=== PATIENT | female | born 1970 | race Two or more races ===

== ENCOUNTER 2020-10-16 15:53 | Inpatient (IN) | payer OTHER ==
[~2020-10-16] VITALS: Ht 213.4 cm; Wt 5.0 kg
[2020-10-23] MEDS ORDERED: AMOX1TAB5 PO (09:10)
[2020-10-23] MEDS ORDERED: PROTONIX40 MG PO (09:12)
[2020-10-23] MEDS ORDERED: ULTRACET PO (09:13)
== END 2020-10-23 11:34 | disposition home or self-care (01) | DRG 418 ==
LOC: ER 15:53 → MEDJ 10-17 21:47 → MEDI 10-17 21:47 → MEDJ 10-19 08:29
PROVIDERS: Surgery; ADMIT Internal Medicine; ATTEND Internal Medicine
PROC: BF37ZZZ Magnetic Resonance Imaging (MRI) of Pancreas (ICD-10-PCS; 2020-10-17)
PROC: 0FC98ZZ Extirpation of Matter from Common Bile Duct, Via Natural or Artificial Opening Endoscopic (ICD-10-PCS; 2020-10-20)
PROC: 0F9C8ZZ Drainage of Ampulla of Vater, Via Natural or Artificial Opening Endoscopic (ICD-10-PCS; 2020-10-20)
PROC: 0DNW4ZZ Release Peritoneum, Percutaneous Endoscopic Approach (ICD-10-PCS; 2020-10-22)
PROC: BF03YZZ Plain Radiography of Gallbladder and Bile Ducts using Other Contrast (ICD-10-PCS; 2020-10-22)
PROC: 0FT44ZZ Resection of Gallbladder, Percutaneous Endoscopic Approach (ICD-10-PCS; principal; 2020-10-22 11:15)
DX: K80.10 Calculus of gallbladder with chronic cholecystitis without obstruction (principal); K80.64 Calculus of gallbladder and bile duct with chronic cholecystitis without obstruction; Z20.828 Contact with and (suspected) exposure to other viral communicable diseases

== ENCOUNTER 2021-12-26 13:33 | Emergency (ER) | payer OTHER ==
[~2021-12-26] VITALS: Ht 172.7 cm; Wt 81.6 kg
[~2021-12-26 13:33] MED LIST: AMOX1TAB5 PO; PROTONIX40 MG PO; ULTRACET PO
== END 2021-12-26 16:34 | disposition home or self-care (01) ==
LOC: ER 13:33
DX: T52.8X1A Toxic effect of other organic solvents, accidental (unintentional), initial encounter (principal); L53.8 Other specified erythematous conditions; Y92.89 Other specified places as the place of occurrence of the external cause

== ENCOUNTER 2023-11-14 18:12 | Emergency (ER) | payer OTHER ==
[~2023-11-14] VITALS: Ht 175.3 cm; Wt 81.6 kg
[2023-11-14 21:01] LABS: HEMATOCRIT 42.9 % (36.0-45.00); HEMOGLOBIN 14.9 g/dL (12.0-15.00); MEAN CELL VOLUME 83.7 fL (80.00-100.00); MEAN CORPUSCULAR HGB CONC 34.7 g/dl (32.0-36.0); PH,URINE 5.5 (5.0-8.0); PLATELET COUNT 169 K/uL (150-450); RED BLOOD COUNT 5.12 M/uL (4.00-6.00); RED CELL DISTRIBUTION WIDTH 14.1 % (11.5-14.5); URINE APPEARANCE Clear; URINE BILIRRUBIN Small (NEGATIVE); URINE BLOOD Trace; URINE COLOR Dark Yellow; URINE GLUCOSE Negative (NEGATIVE); URINE LEUKOCYTE Negative; URINE NITRATE Negative; URINE PROTEIN Trace (NEGATIVE)
[2023-11-14 21:02] LABS: URINE BACTERIA 463.6 uL (0.0-1933); URINE EPITHELIAL CELLS 20.8 uL (0.0-38.8); URINE RBC 22.4 uL (0.0-20.8)
[2023-11-14 21:23] LABS: CALCIUM 8.6 mg/dL (8.5-10.1); CREATININE SERUM 0.56 mg/dL (0.55-1.02); GFR 114.13; POTASSIUM 3.53 mEq/L (3.5-5.1)
[2023-11-14] MEDS ORDERED: PEPCID20 MG PO (22:06)
[2023-11-14] MEDS ORDERED: INTESTINEX680 M1 PO (22:06)
[2023-11-14] MEDS ORDERED: ONDANSETRON HCL4 MG PO (22:06)
== END 2023-11-14 22:16 | disposition home or self-care (01) ==
LOC: ER 18:13
PROVIDERS: Nurse Practitioner Family
DX: K52.89 Other specified noninfective gastroenteritis and colitis (principal); R10.13 Epigastric pain; R11.10 Vomiting, unspecified; Z88.6 Allergy status to analgesic agent; Z93.3 Colostomy status; Z20.822 Contact with and (suspected) exposure to COVID-19
CPT/HCPCS: 36415; 96365; 96366; 99284; J2405; J3490; J7042

== ENCOUNTER 2024-02-28 03:14 | Emergency (ER) | payer OTHER ==
[~2024-02-28] VITALS: Ht 170.2 cm; Wt 81.6 kg
[~2024-02-28 03:14] MED LIST changes: +INTESTINEX680 M1 PO; +ONDANSETRON HCL4 MG PO; +PEPCID20 MG PO
[2024-02-28] MEDS ORDERED: METOCLOPRAMIDE HCL 5 MG/ML VIAL IM STA (05:34)
[2024-02-28] MEDS ORDERED: DEXAMETHASONE SODIUM PHOSPHATE 4 MG/ML VIAL IV STA (05:35)
[2024-02-28] MEDS ORDERED: MECLIZINE HCL 25 MG TABLET PO STA (05:36)
[2024-02-28 06:47] LABS: HEMATOCRIT 43.5 % (36.0-45.00); HEMOGLOBIN 14.6 g/dL (12.0-15.00); MEAN CELL VOLUME 82.2 fL (80.00-100.00); MEAN CORPUSCULAR HEMOGLOBIN 27.6 pg (27.00-32.0); MEAN CORPUSCULAR HGB CONC 33.6 g/dl (32.0-36.0); PLATELET COUNT 187 K/uL (150-450); RED BLOOD COUNT 5.29 M/uL (4.00-6.00); RED CELL DISTRIBUTION WIDTH 13.6 % (11.5-14.5)
[2024-02-28 07:12] LABS: CALCIUM 9.3 mg/dL (8.5-10.1); CREATININE SERUM 0.74 mg/dL (0.55-1.02); GFR 82.74
[2024-02-28 07:14] LABS: POTASSIUM 4.24 mEq/L (3.5-5.1)
== END 2024-02-28 07:23 | disposition home or self-care (01) ==
LOC: ER 03:14
DX: H81.10 Benign paroxysmal vertigo, unspecified ear (principal); Z88.6 Allergy status to analgesic agent

== ENCOUNTER 2024-09-28 07:00 | Day surgery (SDC) | payer OTHER | END 2024-09-28 21:10 | disposition home or self-care (01) | LOC: CIR.AMB 07:00 | PROVIDERS: ATTEND Surgery | DX: D24.1 Benign neoplasm of right breast (principal); N60.81 Other benign mammary dysplasias of right breast; D48.61 Neoplasm of uncertain behavior of right breast ==